=== PATIENT | male | born 1960 | race Caucasian/White ===

== ENCOUNTER 2022-08-18 08:00 | Outpatient (RCR) | payer OTHER, SELFPAY | END 2023-03-14 16:20 | disposition home or self-care (01) | PROVIDERS: PCP Surgery; Visit Provider Physician Assistant Surgical | DX: M67.911 Unspecified disorder of synovium and tendon, right shoulder (principal); M25.511 Pain in right shoulder; Z74.09 Other reduced mobility; R29.3 Abnormal posture; Z51.89 Encounter for other specified aftercare | CPT/HCPCS: 97110; 97140; 97162 ==

== ENCOUNTER 2023-01-28 07:09 | Emergency (ER) | payer OTHER, SELFPAY ==
[2023-01-28] VITALS (23 sets, daily range): BP systolic 138–180; BP diastolic 89–106; PULSE 53–78; RESP 20; TEMP 36; O2SAT 92–98; BMI 33.9
--- NOTE | 2023-01-28 07:37 | ED_ITS ---
HPI - Syncope General Chief Complaint: Syncope/Fainted <Osmany Goodwin MD - Last Filed: 01/30/23 07:44> Stated Complaint: fell and hit bridge and eye area laceration <Osmany Goodwin MD - Last Filed: 01/30/23 07:44> Time Seen by Provider: 01/28/23 07:25 <Osmany Goodwin MD - Last Filed: 01/30/23 07:44> History of Present Illness HPI narrative: Pt is a 62 year old gentleman who is currently being treated with Doxycyline and Albuterol for bronchitis who awoke this morning with a severe coughing episode. Pt's coughing episode was so severe that the pt lost consciousness and struck his face on the bedside table. Pt suffered a skin tear on his forehead and nose. Pt is not sure how long he was unconscious but it is likely just a few seconds. Pt states that he and his came in due to the syncope and head injury as well as the severe coughing. Pt has no residual neurological symptoms. Pt is able to walk and has had no change in his sensorium. Pt has had a history of cough induced syncope in the distant past. Pt has had no fever or chills. No seizure activity. Other than the recent episode of bronchitis, the pt has been in his usual state of health. Today's event occured just prior to arrival. Pt believes that his tetanus shot is up to date. <Osmany Goodwin MD - Last Filed: 01/30/23 07:44> Related Data Home Medications: Home Medications Medication Instructions Recorded Confirmed atorvastatin PO 07/22/22 07/22/22 losartan PO 07/22/22 07/22/22 albuterol sulfate 90 mcg/actuation 1 - 2 puff inhalation Q6H PRN 01/28/23 01/28/23 aerosol inhaler (Ventolin HFA) dyspnea aspirin 81 mg tablet,delayed 81 mg PO DAILY 01/28/23 01/28/23 release (Adult Aspirin Regimen) doxycycline hyclate 100 mg tablet 100 mg PO BID 01/28/23 01/28/23 Previous Rx's Medication Instructions Recorded prednisone 20 mg tablet 20 mg PO BID #10 tabs 01/28/23 <Osmany Goodwin MD - Last Filed: 01/30/23 07:44> Allergies/Adverse Reactions: Allergies Allergy/AdvReac Type Severity Reaction Status Date / Time No Known Drug Allergies Allergy Verified 07/22/22 09:47 <Osmany Goodwin MD - Last Filed: 01/30/23 07:44> Review of Systems Status of ROS: Reports: 10 or more systems reviewed and unremarkable except as noted in History and below <Osmany Goodwin MD - Last Filed: 01/30/23 07:44> [facility] Medical History: Medical History (Updated 01/28/23 @ 09:49 by Lottie Guerrero MD) Celiac disease Hypertension Hypertension Syncope <Osmany Goodwin MD - Last Filed: 01/30/23 07:44> Social History: Social History Smoking Status: Never smoker How often do you have a drink containing alcohol: monthly or less AUDIT-C Alcohol total score: 1 Non-prescribed substance use: denies use <Osmany Goodwin MD - Last Filed: 01/30/23 07:44> Exam Narrative: Exam Narrative: EXAM GENERAL: Patient appears comfortable and well. Skin tear noted on the forehead and nasal bridge. EYES: No scleral icterus. Subsleral hemorrhage noted in the left eye. ENT: Tympanic membranes and oropharynx normal. THYROID: no thyroid nodules or thyromegaly. LYMPH: No supraclavicular or cervical lymphadenopathy. SKIN: Visible skin seen during exam normal or with benign process only. EXT: No dependent lower extremity pedal edema. HEART: Regular rate and rhythm with no murmurs, rubs, or gallops. LUNGS: Clear to auscultation bilaterally with no crackles or wheezes. ABD: Soft, non tender, non distended. PSYCH: Good eye contact, speech is not pressured. <Osmany Goodwin MD - Last Filed: 01/30/23 07:44> Const: Vital Signs, click to edit/add: Vital Signs - 24 hr 01/28/23 07:14 01/28/23 07:45 01/28/23 07:30 Temperature 96.8 F L Pulse Rate 67 Pulse Rate [Pulse Oximeter] 78 Respiratory Rate 20 Blood Pressure Blood Pressure [Ri ght Upper Arm] 172/100 H 170/105 H Pulse Oximetry 93 92 Oxygen Delivery Me thod Room Air 01/28/23 08:13 01/28/23 08:15 01/28/23 08:30 Temperature Pulse Rate 70 68 60 Pulse Rate [Pulse Oximeter] Respiratory Rate Blood Pressure 166/97 H Blood Pressure [Ri ght Upper Arm] Pulse Oximetry 94 94 97 Oxygen Delivery Me thod 01/28/23 08:32 01/28/23 09:00 01/28/23 09:01 Temperature Pulse Rate 61 59 L 61 Pulse Rate [Pulse Oximeter] Respiratory Rate Blood Pressure 176/103 H 180/106 H Blood Pressure [Ri ght Upper Arm] Pulse Oximetry 95 95 96 Oxygen Delivery Me thod 01/28/23 09:02 01/28/23 09:30 01/28/23 09:32 Temperature Pulse Rate 57 L 61 61 Pulse Rate [Pulse Oximeter] Respiratory Rate Blood Pressure 157/102 H Blood Pressure [Ri ght Upper Arm] Pulse Oximetry 96 96 96 Oxygen Delivery Me thod 01/28/23 10:00 01/28/23 10:01 01/28/23 10:02 Temperature Pulse Rate 54 L 55 L 53 L Pulse Rate [Pulse Oximeter] Respiratory Rate Blood Pressure 138/89 Blood Pressure [Ri ght Upper Arm] Pulse Oximetry 95 95 95 Oxygen Delivery Me thod 01/28/23 10:30 01/28/23 10:32 01/28/23 11:00 Temperature Pulse Rate 60 64 68 Pulse Rate [Pulse Oximeter] Respiratory Rate Blood Pressure 166/98 H Blood Pressure [Ri ght Upper Arm] Pulse Oximetry 98 97 96 Oxygen Delivery Me thod 01/28/23 11:01 01/28/23 11:30 01/28/23 11:32 Temperature Pulse Rate 65 71 68 Pulse Rate [Pulse Oximeter] Respiratory Rate Blood Pressure 159/97 H 161/94 H Blood Pressure [Ri ght Upper Arm] Pulse Oximetry 96 96 96 Oxygen Delivery Me thod 01/28/23 12:00 01/28/23 12:01 Temperature Pulse Rate 71 71 Pulse Rate [Pulse Oximeter] Respiratory Rate Blood Pressure 164/100 H Blood Pressure [Ri ght Upper Arm] Pulse Oximetry 96 96 Oxygen Delivery Me thod <Osmany Goodwin MD - Last Filed: 01/30/23 07:44> Vital Signs, click to edit/add: Vital Signs - 24 hr 01/28/23 07:14 01/28/23 07:45 01/28/23 07:30 Temperature 96.8 F L Pulse Rate 67 Pulse Rate [Pulse Oximeter] 78 Respiratory Rate 20 Blood Pressure Blood Pressure [Ri ght Upper Arm] 172/100 H 170/105 H Pulse Oximetry 93 92 Oxygen Delivery Me thod Room Air 01/28/23 08:13 01/28/23 08:15 01/28/23 08:30 Temperature Pulse Rate 70 68 60 Pulse Rate [Pulse Oximeter] Respiratory Rate Blood Pressure 166/97 H Blood Pressure [Ri ght Upper Arm] Pulse Oximetry 94 94 97 Oxygen Delivery Me thod 01/28/23 08:32 01/28/23 09:00 01/28/23 09:01 Temperature Pulse Rate 61 59 L 61 Pulse Rate [Pulse Oximeter] Respiratory Rate Blood Pressure 176/103 H 180/106 H Blood Pressure [Ri ght Upper Arm] Pulse Oximetry 95 95 96 Oxygen Delivery Me thod 01/28/23 09:02 01/28/23 09:30 01/28/23 09:32 Temperature Pulse Rate 57 L 61 61 Pulse Rate [Pulse Oximeter] Respiratory Rate Blood Pressure 157/102 H Blood Pressure [Ri ght Upper Arm] Pulse Oximetry 96 96 96 Oxygen Delivery Me thod 01/28/23 10:00 01/28/23 10:01 01/28/23 10:02 Temperature Pulse Rate 54 L 55 L 53 L Pulse Rate [Pulse Oximeter] Respiratory Rate Blood Pressure 138/89 Blood Pressure [Ri ght Upper Arm] Pulse Oximetry 95 95 95 Oxygen Delivery Me thod 01/28/23 10:30 01/28/23 10:32 01/28/23 11:00 Temperature Pulse Rate 60 64 68 Pulse Rate [Pulse Oximeter] Respiratory Rate Blood Pressure 166/98 H Blood Pressure [Ri ght Upper Arm] Pulse Oximetry 98 97 96 Oxygen Delivery Me thod 01/28/23 11:01 01/28/23 11:30 01/28/23 11:32 Temperature Pulse Rate 65 71 68 Pulse Rate [Pulse Oximeter] Respiratory Rate Blood Pressure 159/97 H 161/94 H Blood Pressure [Ri ght Upper Arm] Pulse Oximetry 96 96 96 Oxygen Delivery Me thod 01/28/23 12:00 01/28/23 12:01 Temperature Pulse Rate 71 71 Pulse Rate [Pulse Oximeter] Respiratory Rate Blood Pressure 164/100 H Blood Pressure [Ri ght Upper Arm] Pulse Oximetry 96 96 Oxygen Delivery Me thod <Lottie Guerrero MD - Last Filed: 01/28/23 12:29> Course Course Hospital Course: Pt seen and examined. CT head and neck, CBC, CMP, Troponin, D-dimer, Urinalysis, Chest X ray ordered. Wounds briefly cleaned. EKG upon my review belinda ws no acute abnormalities. <Osmany Goodwin MD - Last Filed: 01/30/23 07:44> Reevaluation(s) Reevaluation #1: Reviewed the nontraumatic reassuring head CT and cervical spine CT. Reviewed that the chest x-ray looked normal. Patient's D-dimer is just mildly elevated at 0.62. In his history he has been coughing. It does sound like there is a history of vasovagal syncope with coughing before. This is not his 1st episode. He has been plagued by respiratory symptoms. He is being referred to pulmonology. He has never been a smoker. As I was re-evaluating his facial abnormalities, the wound over the bridge of the nose gapes when he raises his eyebrows. He has a superficial abrasion on his forehead with just a slight skin tear. The 1 over the bridge of his nose will need repair. They would like to proceed with a chest CT. I will be ordering chest CT PE protocol. Tetanus is up-to-date 02/05/2021. <Lottie Guerrero MD - Last Filed: 01/28/23 12:29> Time: 09:43 <Lottie Guerrero MD - Last Filed: 01/28/23 12:29> Reevaluation #2: Patient did report to me that he has been having numbness and tingling in his arms since he awoke from his syncopal episode. Did review with him that the CT can rule out fractures but does not completely rule out injury to the spinal cord. He states he has known cervical stenosis and has had radiculopathy and issues in his upper extremities before. We did call and see if there would be any way to get an emergent MRI but we have no technicians available to do so. I offered to contact other organizations and see if I could transfer him for an emergent MRI of his neck. He is declining. He would like to try a course of prednisone thinking that he has just aggravated his cervical stenosis. I went over risks benefits of this and ultimately my preference would be to have him have an MRI. He is declining and is requesting to go home. Did go over signs and symptoms for return. Gave a copy of his CT report, there is no pulmonary emboli but there are issues to follow up with the calcification in the coronary arteries and possibly the need for repeat imaging due to of pulmonary nodule. <Lottie Guerrero MD - Last Filed: 01/28/23 12:29> Time: 12:24 <Lottie Guerrero MD - Last Filed: 01/28/23 12:29> Vital Signs Vital signs: Initial Vital Signs Temperature 96.8 F L 01/28/23 07:14 Temperature Source Temporal Artery Scan 01/28/23 07:14 Pulse Rate 78 01/28/23 07:14 Respiratory Rate 20 01/28/23 07:14 Blood Pressure 172/100 H 01/28/23 07:14 Blood Pressure Mean 124 01/28/23 07:14 Blood Pressure Position Sitting 01/28/23 07:14 Pulse Oximetry 93 01/28/23 07:14 Oxygen Delivery Method 01/28/23 07:14 Vital Signs Temperature 96.8 F L 01/28/23 07:14 Pulse Rate 78 01/28/23 07:14 Respiratory Rate 20 01/28/23 07:14 Blood Pressure 172/100 H 01/28/23 07:14 Pulse Oximetry 93 01/28/23 07:14 Oxygen Delivery Method 01/28/23 07:14 Temperature 96.8 F L 01/28/23 07:14 Pulse Rate 71 01/28/23 12:01 Respiratory Rate 20 01/28/23 07:14 Blood Pressure 164/100 H 01/28/23 12:01 Pulse Oximetry 96 01/28/23 12:01 Oxygen Delivery Method 01/28/23 07:14 <Osmany Goodwin MD - Last Filed: 01/30/23 07:44> Initial Vital Signs Temperature 96.8 F L 01/28/23 07:14 Temperature Source Temporal Artery Scan 01/28/23 07:14 Pulse Rate 78 01/28/23 07:14 Respiratory Rate 20 01/28/23 07:14 Blood Pressure 172/100 H 01/28/23 07:14 Blood Pressure Mean 124 01/28/23 07:14 Blood Pressure Position Sitting 01/28/23 07:14 Pulse Oximetry 93 01/28/23 07:14 Oxygen Delivery Method 01/28/23 07:14 Vital Signs Temperature 96.8 F L 01/28/23 07:14 Pulse Rate 78 01/28/23 07:14 Respiratory Rate 20 01/28/23 07:14 Blood Pressure 172/100 H 01/28/23 07:14 Pulse Oximetry 93 01/28/23 07:14 Oxygen Delivery Method 01/28/23 07:14 Temperature 96.8 F L 01/28/23 07:14 Pulse Rate 71 01/28/23 12:01 Respiratory Rate 20 01/28/23 07:14 Blood Pressure 164/100 H 01/28/23 12:01 Pulse Oximetry 96 01/28/23 12:01 Oxygen Delivery Method 01/28/23 07:14 <Lottie Guerrero MD - Last Filed: 01/28/23 12:29> MDM - Syncope Lab Data Attestation: I reviewed the patient's lab results. <Lottie Guerrero MD - Last Filed: 01/28/23 12:29> Labs: Lab Results 01/28/23 01/28/23 01/28/23 Range/Units 07:53 07:53 07:53 WBC 7.30 (4.50-11.00) K/uL RBC 5.08 (4.30-5.90) m/uL Hgb 12.7 L (13.5-17.5) gm/dL Hct 40.2 (37.0-53.0) % MCV 79 L (80-100) fL MCH 25 L (26-34) pg MCHC 32 (32-36) gm/dL RDW Coeff of John 14.6 (11.5-15.5) % Plt Count 231 (140-440) K/uL Neut % (Auto) 64.1 (42.0-72.0) % Lymph % (Auto) 19.3 L (20-44) % [place] % (Auto) 7.9 (0.0-11.0) % Eos % (Auto) 8.2 H (0.0-7.0) % Baso % (Auto) 0.5 (0.0-3.0) % Neut # (Auto) 4.67 (1.7-7.0) K/uL Lymph # (Auto) 1.40 (0.90-2.90) K/uL [place] # (Auto) 0.60 (0.00-0.90) K/UL Eos # (Auto) 0.60 H (0.00-0.50) K/uL Baso # (Auto) 0.04 (0.00-0.30) K/uL D-Dimer Quant (PE/DVT) 0.62 H (0.00-0.50) ug/ml Sodium 139 (135-149) mmol/L Potassium 3.5 L (3.6-5.1) mmol/L Chloride 108 (96-114) mmol/L Carbon Dioxide 26 (20-32) mmol/L BUN 15 (7-30) mg/dL Creatinine 0.9 (0.5-1.5) mg/dL Estimated Creat Clear 77.06 Estimated GFR 95 ml/min Glucose 128 H (60-115) mg/dL Calcium 8.6 (8.4-10.6) mg/dL Total Bilirubin 0.8 (0.1-1.5) mg/dL AST 26 (12-35) U/L ALT 22 (4-50) U/L Alkaline Phosphatase 101 (40-150) U/L Troponin I < 0.01 L (0.01-0.04) ng/mL Total Protein 6.8 (6.0-8.3) g/dL Albumin 3.9 (3.3-5.0) g/dL Urine Color (Yellow) Urine Appearance (Clear) Urine pH (5.0-8.5) Ur Specific [place] (1.000-1.030) Urine Protein (Negative) Urine Glucose (UA) (Negative) Urine Ketones (Negative) Urine Blood (Negative) Urine Nitrite (Negative) Urine Bilirubin (Negative) Urine Urobilinogen (0.2-1.0) Ur Leukocyte Esterase (Negative) Urine RBC (0-2) Urine WBC (0-5) Ur Squamous Epith Cells (None-Few) Urine Bacteria (None) 01/28/23 Range/Units 12:16 WBC (4.50-11.00) K/uL RBC (4.30-5.90) m/uL Hgb (13.5-17.5) gm/dL Hct (37.0-53.0) % MCV (80-100) fL MCH (26-34) pg MCHC (32-36) gm/dL RDW Coeff of John (11.5-15.5) % Plt Count (140-440) K/uL Neut % (Auto) (42.0-72.0) % Lymph % (Auto) (20-44) % Humphreys % (Auto) (0.0-11.0) % Eos % (Auto) (0.0-7.0) % Baso % (Auto) (0.0-3.0) % Neut # (Auto) (1.7-7.0) K/uL Lymph # (Auto) (0.90-2.90) K/uL [place] # (Auto) (0.00-0.90) K/UL Eos # (Auto) (0.00-0.50) K/uL Baso # (Auto) (0.00-0.30) K/uL D-Dimer Quant (PE/DVT) (0.00-0.50) ug/ml Sodium (135-149) mmol/L Potassium (3.6-5.1) mmol/L Chloride (96-114) mmol/L Carbon Dioxide (20-32) mmol/L BUN (7-30) mg/dL Creatinine (0.5-1.5) mg/dL Estimated Creat Clear Estimated GFR ml/min Glucose (60-115) mg/dL Calcium (8.4-10.6) mg/dL Total Bilirubin (0.1-1.5) mg/dL AST (12-35) U/L ALT (4-50) U/L Alkaline Phosphatase (40-150) U/L Troponin I (0.01-0.04) ng/mL Total Protein (6.0-8.3) g/dL Albumin (3.3-5.0) g/dL Urine Color Yellow (Yellow) Urine Appearance Clear (Clear) Urine pH 6.5 (5.0-8.5) Ur Specific [place] 1.010 (1.000-1.030) Urine Protein Negative (Negative) Urine Glucose (UA) Negative (Negative) Urine Ketones Negative (Negative) Urine Blood Trace-intact A (Negative) Urine Nitrite Negative (Negative) Urine Bilirubin Negative (Negative) Urine Urobilinogen 0.2 (0.2-1.0) Ur Leukocyte Esterase Negative (Negative) Urine RBC 2-5 A (0-2) Urine WBC 0-2 (0-5) Ur Squamous Epith Cells Few (None-Few) Urine Bacteria Few A (None) <Osmany Goodwin MD - Last Filed: 01/30/23 07:44> Lab Results 01/28/23 01/28/23 01/28/23 Range/Units 07:53 07:53 07:53 WBC 7.30 (4.50-11.00) K/uL RBC 5.08 (4.30-5.90) m/uL Hgb 12.7 L (13.5-17.5) gm/dL Hct 40.2 (37.0-53.0) % MCV 79 L (80-100) fL MCH 25 L (26-34) pg MCHC 32 (32-36) gm/dL RDW Coeff of John 14.6 (11.5-15.5) % Plt Count 231 (140-440) K/uL Neut % (Auto) 64.1 (42.0-72.0) % Lymph % (Auto) 19.3 L (20-44) % Humph[place]ys % (Auto) 7.9 (0.0-11.0) % Eos % (Auto) 8.2 H (0.0-7.0) % Baso % (Auto) 0.5 (0.0-3.0) % Neut # (Auto) 4.67 (1.7-7.0) K/uL Lymph # (Auto) 1.40 (0.90-2.90) K/uL [place] # (Auto) 0.60 (0.00-0.90) K/UL Eos # (Auto) 0.60 H (0.00-0.50) K/uL Baso # (Auto) 0.04 (0.00-0.30) K/uL D-Dimer Quant (PE/DVT) 0.62 H (0.00-0.50) ug/ml Sodium 139 (135-149) mmol/L Potassium 3.5 L (3.6-5.1) mmol/L Chloride 108 (96-114) mmol/L Carbon Dioxide 26 (20-32) mmol/L BUN 15 (7-30) mg/dL Creatinine 0.9 (0.5-1.5) mg/dL Estimated Creat Clear 77.06 Estimated GFR 95 ml/min Glucose 128 H (60-115) mg/dL Calcium 8.6 (8.4-10.6) mg/dL Total Bilirubin 0.8 (0.1-1.5) mg/dL AST 26 (12-35) U/L ALT 22 (4-50) U/L Alkaline Phosphatase 101 (40-150) U/L Troponin I < 0.01 L (0.01-0.04) ng/mL Total Protein 6.8 (6.0-8.3) g/dL Albumin 3.9 (3.3-5.0) g/dL Urine Color (Yellow) Urine Appearance (Clear) Urine pH (5.0-8.5) Ur Specific [place] (1.000-1.030) Urine Protein (Negative) Urine Glucose (UA) (Negative) Urine Ketones (Negative) Urine Blood (Negative) Urine Nitrite (Negative) Urine Bilirubin (Negative) Urine Urobilinogen (0.2-1.0) Ur Leukocyte Esterase (Negative) Urine RBC (0-2) Urine WBC (0-5) Ur Squamous Epith Cells (None-Few) Urine Bacteria (None) 01/28/23 Range/Units 12:16 WBC (4.50-11.00) K/uL RBC (4.30-5.90) m/uL Hgb (13.5-17.5) gm/dL Hct (37.0-53.0) % MCV (80-100) fL MCH (26-34) pg MCHC (32-36) gm/dL RDW Coeff of John (11.5-15.5) % Plt Count (140-440) K/uL Neut % (Auto) (42.0-72.0) % Lymph % (Auto) (20-44) % [place] % (Auto) (0.0-11.0) % Eos % (Auto) (0.0-7.0) % Baso % (Auto) (0.0-3.0) % Neut # (Auto) (1.7-7.0) K/uL Lymph # (Auto) (0.90-2.90) K/uL [place] # (Auto) (0.00-0.90) K/UL Eos # (Auto) (0.00-0.50) K/uL Baso # (Auto) (0.00-0.30) K/uL D-Dimer Quant (PE/DVT) (0.00-0.50) ug/ml Sodium (135-149) mmol/L Potassium (3.6-5.1) mmol/L Chloride (96-114) mmol/L Carbon Dioxide (20-32) mmol/L BUN (7-30) mg/dL Creatinine (0.5-1.5) mg/dL Estimated Creat Clear Estimated GFR ml/min Glucose (60-115) mg/dL Calcium (8.4-10.6) mg/dL Total Bilirubin (0.1-1.5) mg/dL AST (12-35) U/L ALT (4-50) U/L Alkaline Phosphatase (40-150) U/L Troponin I (0.01-0.04) ng/mL Total Protein (6.0-8.3) g/dL Albumin (3.3-5.0) g/dL Urine Color Yellow (Yellow) Urine Appearance Clear (Clear) Urine pH 6.5 (5.0-8.5) Ur Specific [place] 1.010 (1.000-1.030) Urine Protein Negative (Negative) Urine Glucose (UA) Negative (Negative) Urine Ketones Negative (Negative) Urine Blood Trace-intact A (Negative) Urine Nitrite Negative (Negative) Urine Bilirubin Negative (Negative) Urine Urobilinogen 0.2 (0.2-1.0) Ur Leukocyte Esterase Negative (Negative) Urine RBC 2-5 A (0-2) Urine WBC 0-2 (0-5) Ur Squamous Epith Cells Few (None-Few) Urine Bacteria Few A (None) <Lottie Guerrero MD - Last Filed: 01/28/23 12:29> Imaging Data CT scan - head: Attestation: I have reviewed the pertinent imaging results. <Lottie Gilliland MD - Last Filed: 01/28/23 12:29> Radiologist's impression: Patient: ROSELYN SCHAEFFER Facility:?[facility] Patient ID:?[id number] Site Patient ID:?[id number]. Site :?1960 Study:?CT Head W/O-01/28/2023 8:16:26 AM Ordering Physician:?Christa Ceron Final Report: INDICATION: Injury COMPARISON: None TECHNIQUE: CT examination of the head was performed as axial sections without intravenous contrast. Images were obtained from the vertex of the skull through the skull base. Please note that all CT scans at this facility use dose modulation, iterative reconstruction, and/or weight-based dosing when appropriate to reduce radiation dose to as low as reasonably achievable. FINDINGS: The brain shows no sign of mass lesion, mass effect, hemorrhage, or edema. The ventricles and sulci are normal in appearance for the patient`s age. The visualized portions of the orbits are normal in appearance. The osseous structures are normal in their appearance with no sign of abnormality in the skull base or calvarium. Chronic paranasal sinus mucosal inflammatory disease. IMPRESSION: No acute posttraumatic finding intracranially. Chronic paranasal sinus mucosal inflammatory disease incidentally noted. Please note that all CT scans at this facility use dose modulation, iterative reconstruction, and/or weight-based dosing when appropriate to reduce radiation dose to as low as reasonably achievable. Dictated by River Gonzalez MD @ 01/28/2023 8:37:39 AM (Electronic Signature) <Lottie Guerrero MD - Last Filed: 01/28/23 12:29> CT cervical spine: Attestation: I have reviewed the pertinent imaging results. <Lottie Gilliland MD - Last Filed: 01/28/23 12:29> Radiologist's impression: Patient: ROSELYN SCHAEFFER Facility:?[facility] Patient ID:?[id number] Site Patient ID:?[id number]. Site :?1960 Study:?CT Spine Cervical W/O-01/28/2023 8:16:59 AM Ordering Physician:?Christa Ceron Final Report: INDICATION: Injury COMPARISON: None TECHNIQUE: CT examination of the cervical spine is performed without contrast using spiral technique. Thin axial, sagittal and coronal reconstructions were made. Please note that all CT scans at this facility use dose modulation, iterative reconstruction, and/or weight-based dosing when appropriate to reduce radiation dose to as low as reasonably achievable. FINDINGS: : There is no traumatic malalignment. There are degenerative changes diffusely but most affecting the mid and lower cervical spine. There is no visible acute fracture, dislocation or destructive process. IMPRESSION: No visible acute posttraumatic finding. Please note that all CT scans at this facility use dose modulation, iterative reconstruction, and/or weight-based dosing when appropriate to reduce radiation dose to as low as reasonably achievable. Dictated by River Gonzalez MD @ 01/28/2023 8:42:49 AM (Electronic Signature) <Lottie Guerrero MD - Last Filed: 01/28/23 12:29> Chest x-ray: Attestation: I have reviewed the pertinent imaging results. <Lottie Gilliland MD - Last Filed: 01/28/23 12:29> Radiologist's impression: Patient: ROSELYN SCHAEFFER Facility:?[facility] Patient ID:?[id number] Site Patient ID:?[id number]. Site :?1960 Study:?XRay Chest 2V-01/28/2023 8:17:14 AM Ordering Physician:Jada Ceron Final Report: INDICATION: Cough COMPARISON: None TECHNIQUE: PA and lateral views of the chest were acquired FINDINGS: TUBES AND LINES: None. HEART AND MEDIASTINUM: The heart size is normal. The mediastinal contour appears normal for patient age. LUNGS AND PLEURAL SPACES: The lungs appear normal.The pleural spaces are unremarkable. OSSEOUS STRUCTURES: Age-appropriate appearance. No acute focal finding. IMPRESSION: No evidence of active pulmonary disease. Dictated by River Gonzalez MD @ 01/28/2023 8:45:26 AM (Electronic Signature) <Lottie Guerrero MD - Last Filed: 01/28/23 12:29> CT scan - chest: Attestation: I have reviewed the pertinent imaging results. <Lottie Gilliland MD - Last Filed: 01/28/23 12:29> Radiologist's impression: Patient: ROSELYN SCHAEFFER Facility:?[facility] Patient ID:?[id number] Site Patient ID:?[id number]. Site :?1960 Study:?CT Chest Angio W/IV ONLY-01/28/2023 10:20:01 AM Ordering Physician:Hiram Tafoya Final Report: Indication: Cough syncope Technique: CT PE Comparison: No comparison Findings: Normal caliber thoracic aorta. No pulmonary emboli. Heart is mildly enlarged. Coronary artery calcification. No mediastinal hilar adenopathy. No pleural effusion. 3 millimeter micro nodule right upper lobe 04/09. Bronchial wall thickening. Lingular mild atelectasis tiny right effusion. Mild atelectasis. Small hiatal hernia. No suspicious bony lesions. Impression: 1. No pulmonary emboli. 2. Small right effusion bronchial wall thickening bilaterally. Basilar atelectasis and lingular atelectasis. 3. 3 millimeter micro nodule right upper lobe. Follow-up per Fleischner society guidelines. Please note that all CT scans at this facility use dose modulation, iterative reconstruction, and/or weight-based dosing when appropriate to reduce radiation dose to as low as reasonably achievable. Dictated by Eleanor Borrego MD @ 01/28/2023 10:44:35 AM (Electronic Signature) <Lottie Guerrero MD - Last Filed: 01/28/23 12:29> ECG Data Attestation: I personally reviewed and interpreted this ECG as follows: (Sinus rhythm, 76 beats per minute. Q-waves in flipped T-waves inferiorly without any ST segment change. QT corrected 460 milliseconds.) <Lottie Guerrero MD - Last Filed: 01/28/23 12:29> ECG interpretation date: 01/28/23 <Lottie Guerrero MD - Last Filed: 01/28/23 12:29> ECG interpretation time: 09:00 <Lottie Guerrero MD - Last Filed: 01/28/23 12:29> Prior ECG tracings: not available for review <Lottie Guerrero MD - Last Filed: 01/28/23 12:29> Discharge Plan Discharge Clinical Impression: Vasovagal syncope, Laceration of face <Osmany Goodwin MD - Last Filed: 01/30/23 07:44> Patient Disposition: Home, Self-Care <Osmany Goodwin MD - Last Filed: 01/30/23 07:44> Condition: Stable <Osmany Goodwin MD - Last Filed: 01/30/23 07:44> Instructions: Laceration (ED) <Osmany Goodwin MD - Last Filed: 01/30/23 07:44> Additional Instructions: Need to be seen in clinic next Monday to assess the wound for suture removal. Use bacitracin or Vaseline to this wound 3 to 4 times a day in the meantime. If there is concern for infection, need to be re-evaluated. Need to take her CT report both your primary care doctor and your pulmonary appointment. The CT does show calcification the coronary arteries. May consider doing cardiac stress testing just to ensure that there are no significant blockages developing. As for the pulmonary nodule, defer to the heel slicker as to any repeat CT imaging that might be recommended. Complete antibiotics that you are on. Will give you a prescription of prednisone to try for your neck. If you have increasing arm numbness tingling, any motor issues, developed pain in your neck or into her arms, do think you need an emergent MRI of your neck but note that [facility] does not have that available 05/06. <Osmany Goodwin MD - Last Filed: 01/30/23 07:44> Activity Level: Activity as Tolerated <Osmany Goodwin MD - Last Filed: 01/30/23 07:44> Activity as Tolerated <Lottie Guerrero MD - Last Filed: 01/28/23 12:29> Prescriptions: New prednisone 20 mg tablet 20 mg PO BID Qty: 10 0RF No Action losartan PO atorvastatin PO albuterol sulfate [Ventolin HFA] 90 mcg/actuation HFA aerosol inhaler 1 - 2 puff INHALATION Q6H PRN (Reason: dyspnea) doxycycline hyclate 100 mg tablet 100 mg PO BID aspirin [Adult Aspirin Regimen] 81 mg tablet,delayed release (DR/EC) 81 mg PO DAILY <Osmany Goodwin MD - Last Filed: 01/30/23 07:44> Follow Up/Referrals: Nish Lemus MD [Primary Care Provider] - <Osmany Goodwin MD - Last Filed: 01/30/23 07:44> Stand Alone Forms: [facility] Info Inst[facility] <Osmany Goodwin MD - Last Filed: 01/30/23 07:44> Procedures Laceration Laceration 1: Pre procedure diagnosis: Nasal bridge laceration <Lottie Guerrero MD - Last Filed: 01/28/23 12:29> Post procedure diagnosis: Same <Lottie Guerrero MD - Last Filed: 01/28/23 12:29> Site marking: not applicable <Lottie Guerrero MD - Last Filed: 01/28/23 12:29> Verification/time out: correct patient, correct site and correct procedure <Lottie Guerrero MD - Last Filed: 01/28/23 12:29> Name of person performing procedure: Lottie Guerrero <Lottie Guerrero MD - Last Filed: 01/28/23 12:29> Site: face <Lottie Guerrero MD - Last Filed: 01/28/23 12:29> Size (cm): 2 <Lottie Guerrero MD - Last Filed: 01/28/23 12:29> Description: linear <Lottie Guerrero MD - Last Filed: 01/28/23 12:29> Depth: simple, single layer <Lottie Guerrero MD - Last Filed: 01/28/23 12:29> Local Anesthetic: lidocaine 2% <Lottie Guerrero MD - Last Filed: 01/28/23 12:29> Amount of anesthesia used (mL): 5 (3.5 mL used, 5 mL was drawn up) <Lottie Guerrero MD - Last Filed: 01/28/23 12:29> Pre-repair: wound explored <Lottie Guerrero MD - Last Filed: 01/28/23 12:29> Skin layer closed with: other (Ethilon) <Lottie Guerrero MD - Last Filed: 01/28/23 12:29> Size (cm): 4-0 <Lottie Guerrero MD - Last Filed: 01/28/23 12:29> Number of sutures: 5 <Lottie Guerrero MD - Last Filed: 01/28/23 12:29> Technique: simple, interrupted <Lottie Guerrero MD - Last Filed: 01/28/23 12:29> Wound cleansing: sterile water <Lottie Guerrero MD - Last Filed: 01/28/23 12:29> Estimated blood loss (if any): less than 5mls <Lottie Guerrero MD - Last Filed: 01/28/23 12:29> Conclusion: patient tolerated procedure <Lottie Guerrero MD - Last Filed: 01/28/23 12:29>
--- NOTE | 2023-01-28 07:41 | ED.NURSE ---
pt placed on heart monitor, shows SR, ekg done. 2 lacs to forehead and bridge of nose lac cleaned. at bedside. pt also wants doctor to know that yesterday felt something pop in R side/back while coughing and now painful to cough.
--- NOTE | 2023-01-28 07:46 | CRLHL7_ITS ---
For Patients: As a result of the Cures Act, medical imaging exams and procedure reports are released immediately into your electronic medical record. You may view this report before your referring provider. If you have questions, please contact your health care provider. INDICATION: Cough COMPARISON: None TECHNIQUE: PA and lateral views of the chest were acquired FINDINGS: TUBES AND LINES: None. HEART AND MEDIASTINUM: The heart size is normal. The mediastinal contour appears normal for patient age. LUNGS AND PLEURAL SPACES: The lungs appear normal.The pleural spaces are unremarkable. OSSEOUS STRUCTURES: Age-appropriate appearance. No acute focal finding. IMPRESSION: No evidence of active pulmonary disease. Dictated by River Gonzalez MD @ 01/28/2023 8:45:26 AM (Electronically Signed)
--- NOTE | 2023-01-28 07:46 | CT_ITS ---
Patient: ROSELYN SCHAEFFER Facility:?[facility] Patient ID:?[id number] Site Patient ID:?[id number]. Site :?[id number] Study:?CT-Spine Cervical W/O-01/28/2023 8:16:59 AM Ordering Physician:?Christa Ceron Final Report: INDICATION: Injury COMPARISON: None TECHNIQUE: CT examination of the cervical spine is performed without contrast using spiral technique. Thin axial, sagittal and coronal reconstructions were made. Please note that all CT scans at this facility use dose modulation, iterative reconstruction, and/or weight-based dosing when appropriate to reduce radiation dose to as low as reasonably achievable. FINDINGS: : There is no traumatic malalignment. There are degenerative changes diffusely but most affecting the mid and lower cervical spine. There is no visible acute fracture, dislocation or destructive process. IMPRESSION: No visible acute posttraumatic finding. Please note that all CT scans at this facility use dose modulation, iterative reconstruction, and/or weight-based dosing when appropriate to reduce radiation dose to as low as reasonably achievable. Dictated by River Gonzalez MD @ 01/28/2023 8:42:49 AM Signed by:?River Gonzalez MD @01/28/2023 8:42:49 AM (Electronic Signature)
[2023-01-28 08:10] LABS: Basophils Absolute Auto 0.04 K/uL (0.00-0.30); Basophils Percent Auto 0.5 % (0.0-3.0); Eosinophils Percent Auto 8.2 % (0.0-7.0); Hematocrit 40.2 % (37.0-53.0); Hemoglobin* 12.7 gm/dL (13.5-17.5); Lymphocytes Percent Auto 19.3 % (20-44); Mean Corpuscular HGB Conc 32 gm/dL (32-36); Mean Corpuscular Hemoglobin 25 pg (26-34); Mean Corpuscular Volume 79 fL (80-100); Monocytes Percent Auto 7.9 % (0.0-11.0); Neutrophils Absolute Auto 4.67 K/uL (1.7-7.0); Neutrophils Percent Auto 64.1 % (42.0-72.0); Platelet Count* 231 K/uL (140-440); RDW Coefficient of Variation % 14.6 % (11.5-15.5); Red Blood Count 5.08 m/uL (4.30-5.90)
[2023-01-28 08:12] LABS: Albumin* 3.9 g/dL (3.3-5.0); Chloride* 108 mmol/L (96-114)
[2023-01-28 08:13] LABS: Potassium* 3.5 mmol/L (3.6-5.1); Sodium* 139 mmol/L (135-149)
[2023-01-28 08:15] LABS: Alkaline Phosphatase* 101 U/L (40-150); Aspartate Amino Transferase* 26 U/L (12-35); Bilirubin Total* 0.8 mg/dL (0.1-1.5); Blood Urea Nitrogen* 15 mg/dL (7-30); Carbon Dioxide* 26 mmol/L (20-32); Creatinine* 0.9 mg/dL (0.5-1.5); Est. Creatinine Clearance* 77.06; Estimated Glomerular Filt Rate 95 ml/min; Total Protein* 6.8 g/dL (6.0-8.3)
[2023-01-28 08:16] LABS: Alanine Aminotransferase* 22 U/L (4-50); Calcium* 8.6 mg/dL (8.4-10.6); Glucose* 128 mg/dL (60-115); Slide Review Reflex No
[2023-01-28 08:17] LABS: D Dimer Quantitative* 0.62 ug/ml (0.00-0.50)
[2023-01-28 08:37] LABS: Troponin I* < 0.01 ng/mL (0.01-0.04)
--- NOTE | 2023-01-28 09:42 | CRLHL7_ITS ---
For Patients: As a result of the Cures Act, medical imaging exams and procedure reports are released immediately into your electronic medical record. You may view this report before your referring provider. If you have questions, please contact your health care provider. Indication: Cough syncope Technique: CT PE Comparison: No comparison Findings: Normal caliber thoracic aorta. No pulmonary emboli. Heart is mildly enlarged. Coronary artery calcification. No mediastinal hilar adenopathy. No pleural effusion. 3 millimeter micro nodule right upper lobe 04/09. Bronchial wall thickening. Lingular mild atelectasis tiny right effusion. Mild atelectasis. Small hiatal hernia. No suspicious bony lesions. Impression: 1. No pulmonary emboli. 2. Small right effusion bronchial wall thickening bilaterally. Basilar atelectasis and lingular atelectasis. 3. 3 millimeter micro nodule right upper lobe. Follow-up per Fleischner society guidelines. Please note that all CT scans at this facility use dose modulation, iterative reconstruction, and/or weight-based dosing when appropriate to reduce radiation dose to as low as reasonably achievable. Dictated by Eleanor Borrego MD @ 01/28/2023 10:44:35 AM (Electronically Signed)
--- NOTE | 2023-01-28 10:01 | ED.NURSE ---
dr. zimmerman sutured bridge of nose. bacitracin to bridge of nose and cuts on forehead.
[2023-01-28 12:46] LABS: Appearance Urine Clear (Clear); Bilirubin Urine Negative (Negative); Blood Urine Trace-intact (Negative); Color Urine Yellow (Yellow); Glucose Urine Negative (Negative); Ketones Urine Negative (Negative); Leukocyte Esterase Urine Negative (Negative); Nitrite Urine Negative (Negative); Protein Urine Negative (Negative); Urobilinogen Urine 0.2 (0.2-1.0); pH Urine 6.5 (5.0-8.5)
[2023-01-28 14:15] LABS: WBC Urine 0-2 (0-5)
[2023-01-28 14:16] LABS: Bacteria Urine Few; Squamous Epithelial Cell Urine Few (None-Few)
== END 2023-01-28 12:45 | disposition home or self-care (01) ==
PROVIDERS: Internal Medicine; Emergency Provider Family Medicine; PCP Surgery
DX: S01.21XA Laceration without foreign body of nose, initial encounter (principal); W18.00XA Striking against unspecified object with subsequent fall, initial encounter; R55 Syncope and collapse; R05.9 Cough, unspecified
CPT/HCPCS: 12011; 36415; 70450; 71046; 71260; 72125; 80053; 81003; 81015; 84484; 85025; 85379; 87086; 99283; 99284; Q9967

== ENCOUNTER 2025-10-16 08:30 | Outpatient (RCR) | payer OTHER, SELFPAY | END 2025-10-16 16:08 | disposition home or self-care (01) | PROVIDERS: PCP Surgery; Visit Provider Surgery | DX: R25.2 Cramp and spasm (principal); R29.898 Other symptoms and signs involving the musculoskeletal system; Z51.89 Encounter for other specified aftercare | CPT/HCPCS: 97110; 97112; 97161; 97530 ==